=== PATIENT | female | born 1985 | race Caucasian/White ===

== ENCOUNTER 2024-12-08 01:48 | Observation (INO) | payer OTHER, SELFPAY ==
[2024-12-08 02:24] VITALS: BP 111/46; BMI 27.5
[2024-12-08] MEDS: LR 1000 IV ×4 (02:45→20:41)
[2024-12-08] MEDS: PRENATAL PLUS PO (03:46)
[2024-12-08] MEDS: ADALAT 20 MG PO (03:47)
[2024-12-08] MEDS: CELESTONE SOLUSPAN 2 MG IM (03:49)
[2024-12-08 03:57] LABS: Hematocrit 33.9 % (37.0-47.0); Hemoglobin 11.7 g/dL (12.0-16.0); Mean Corp Hgb Conc. 34.5 g/dL (33.0-37.0); Mean Corpuscular Volume 93.6 fL (81.0-99.0); Platelet Count 240 10^3/uL (130-400); Red Cell Dist. Width 13.1 % (11.5-14.5)
[2024-12-08] MEDS: PEPCID 20 MG PO ×2 (08:12→20:07)
[2024-12-08] MEDS: LEXAPRO 10 MG PO (08:12)
[2024-12-08] MEDS: BRETHINE 250 MCG SC ×5 (10:03→20:07)
[2024-12-08] MEDS: PENICILLIN 110 UNITS IV (10:14)
[2024-12-08] MEDS: PENICILLIN IV (10:15)
[2024-12-08] MEDS: PENICILLIN 55 UNITS IV ×3 (14:11→22:02)
[2024-12-08] MEDS: CLARITIN 10 MG PO (20:07)
[2024-12-08] MEDS: FEOSOL 325 MG PO (22:02)
[2024-12-08] MEDS: PRENATAL PLUS 1 TABLET PO (22:02)
[2024-12-09] MEDS: BRETHINE 250 MCG SC ×6 (00:08→20:18)
[2024-12-09] MEDS: PENICILLIN 55 UNITS IV ×4 (02:08→13:59)
[2024-12-09] MEDS: LR 1000 IV (04:13)
[2024-12-09] MEDS: CELESTONE SOLUSPAN 2 MG IM (04:20)
[2024-12-09] MEDS: CLARITIN 10 MG PO ×2 (08:20→20:17)
[2024-12-09] MEDS: LEXAPRO 10 MG PO (08:20)
[2024-12-09] MEDS: PEPCID 20 MG PO ×2 (08:20→20:17)
[2024-12-09] MEDS: PRENATAL PLUS 1 TABLET PO (20:17)
[2024-12-10] MEDS: BRETHINE 250 MCG SC ×2 (00:12→04:07)
[2024-12-10] MEDS: LEXAPRO 10 MG PO (07:56)
[2024-12-10] MEDS: PEPCID 20 MG PO ×2 (07:56→20:07)
[2024-12-10] MEDS: CLARITIN 10 MG PO ×2 (07:56→20:07)
--- NOTE | 2024-12-10 17:42 | CON.NEO ---
Consultation
-
Date/Time Consultation Requested: 12/10/2024 at 1500
Date/Time Consultation Performed: 12/10/2024 at 1700
Requesting Provider: Dr. Hernandes
Performing Provider: Dr. Carvalho
Reason for Consultation: in labor and 32 weeks
Consultation - Neonatology
Maternal Labs
Blood Type: O Positive
Antibody Screen: Negative
RPR: Nonreactive
Rubella: Immune
Hep B S Ag: Negative
Hep C: Negative
HIV: Nonreactive
Group B Strep: Negative
Chlamydia/GC: Negative
Consult
Points discussed at consult: Baby is a boy, parents have yet to settle on a name for him.
- Management at delivery including the possibility of CPAP/intubation/surfactant discussed
- Respiratory: RDS possibility with possibility of worsening for 24-48 hrs, management including CPAP/surfactant/ventilator support may be required
- Nutrition: Hypoglycemia, need for IV fluids, gradual feed advance, Gavage feeding, importance of colostrum feeding, initiation of expression of colostrum within 3-4 hours, availability of donor milk, safety fo donor milk etc. were discussed. Mom
plans to breastfeed and pump, she had some difficulty with supply with her now 3 year old. They previously used donor BM for the older sister and signed consent to use for this baby.
- Procedures: Intubation, CPAP, IV placement, blood tests, umbilical arterial or venous lines, gavage feedings were discussed
- CVS: possibility of PDA not discussed in detail at this time
- Jaundice possibility and need for phototherapy discussed. Parents state the older sister was followed by the [employer] for jaundice but never required phototherapy.
- Family Centered Care: Discussed FCC with emphasis on parental participation during sign off and during management rounds and is encouraged. Availability of nena eyes camera and visitation also discussed.
Mom and Dad were given the opportunity to ask questions throughout and open invitation to call if any questions come as they absorb all the information given so far.
Face to Face Time
Total [id number] Time (in Minutes): 40
[employer]
[2024-12-10] MEDS: PRENATAL PLUS 1 TABLET PO (22:13)
[2024-12-11] MEDS: PEPCID 20 MG PO (08:05)
[2024-12-11] MEDS: CLARITIN 10 MG PO (08:05)
[2024-12-11] MEDS: LEXAPRO 10 MG PO (08:05)
[2024-12-11] MEDS: COLACE 100 MG PO (08:05)
== END 2024-12-11 09:20 | disposition home or self-care (01) ==
LOC: LDRP 01:48
PROVIDERS: ADMITTING PHYSICIAN Obstetrics & Gynecology; CONSULT PHYSICIAN Pediatrics Neonatal-Perinatal Medicine; FAMILY PHYSICIAN Student in an Organized Health Care Education/Training Program
DX: O60.03 Preterm labor without delivery, third trimester (principal); Z3A.33 33 weeks gestation of pregnancy; R10.9 Unspecified abdominal pain; J30.2 Other seasonal allergic rhinitis; O99.343 Other mental disorders complicating pregnancy, third trimester; F41.9 Anxiety disorder, unspecified; O09.523 Supervision of elderly multigravida, third trimester; K21.9 Gastro-esophageal reflux disease without esophagitis; Z88.1 Allergy status to other antibiotic agents; Z91.014 Allergy to mammalian meats; Z91.018 Allergy to other foods; Z85.828 Personal history of other malignant neoplasm of skin; Z80.3 Family history of malignant neoplasm of breast
CPT/HCPCS: 76805; 82731; 85027; 86850; 86900; 86901; 87070; G0378

== ENCOUNTER 2025-01-10 16:58 | Inpatient (IN) | payer OTHER, SELFPAY ==
[2025-01-10 17:03] VITALS: BP 114/78; BMI 28.3
[2025-01-10 17:43] LABS: Hematocrit 36.0 % (37.0-47.0); Hemoglobin 12.3 g/dL (12.0-16.0); Mean Corp Hgb Conc. 34.2 g/dL (33.0-37.0); Mean Corpuscular Volume 91.8 fL (81.0-99.0); Nucleated Red Blood Cells % 0 %; Platelet Count 229 10^3/uL (130-400); Red Cell Dist. Width 13.1 % (11.5-14.5)
[2025-01-10] MEDS: LR 1000 IV ×3 (17:43→19:14)
[2025-01-10] MEDS: FENTANYL/BUPIVACAINE 100 EPIDURAL (17:48)
[2025-01-10] MEDS: SUBLIMAZE 100 MCG EPIDURAL (17:48)
[2025-01-11 04:23] LABS: Hematocrit 30.5 % (37.0-47.0); Hemoglobin 10.3 g/dL (12.0-16.0)
[2025-01-11] MEDS: PRENATAL PLUS 1 TABLET PO ×2 (05:39→20:57)
[2025-01-11] MEDS: MOTRIN 600 MG PO ×3 (08:33→20:57)
[2025-01-11] MEDS: COLACE 100 MG PO ×2 (08:33→20:57)
[2025-01-11 09:59] LABS: Urine Character Clear (Clear)
[2025-01-11 10:09] LABS: Urine Red Blood Cell 40-50 /HPF (0-2); Urine Squamous Cell 0-2 /LPF (Few)
[2025-01-11] MEDS: PEPCID 20 MG PO ×2 (11:08→20:57)
[2025-01-11] MEDS: LEXAPRO 10 MG PO (11:09)
[2025-01-11] MEDS: CLARITIN 10 MG PO (13:25)
[2025-01-12] MEDS: MOTRIN 600 MG PO (06:20)
[2025-01-12] MEDS: COLACE 100 MG PO (09:05)
[2025-01-12] MEDS: CLARITIN 10 MG PO (09:05)
[2025-01-12] MEDS: PEPCID 20 MG PO (09:05)
[2025-01-12] MEDS: LEXAPRO 10 MG PO (09:05)
[2025-01-12 15:47] LABS: Syphilis/T. pallidum Ab Reflex Negative (Negative)
== END 2025-01-12 11:52 | disposition home or self-care (01) | DRG 807 ==
LOC: LDRP 16:58
PROVIDERS: ADMITTING PHYSICIAN Obstetrics & Gynecology
PROC: 10E0XZZ Delivery of Products of Conception, External Approach (ICD-10-PCS; 2025-01-10)
PROC: 6A550ZT Pheresis of Cord Blood Stem Cells, Single (ICD-10-PCS; 2025-01-10)
PROC: 10907ZC Drainage of Amniotic Fluid, Therapeutic from Products of Conception, Via Natural or Artificial Opening (ICD-10-PCS; 2025-01-10)
PROC: 0KQM0ZZ Repair Perineum Muscle, Open Approach (ICD-10-PCS; 2025-01-10)
DX: O99.344 Other mental disorders complicating childbirth (principal); Z37.0 Single live birth; Z3A.37 37 weeks gestation of pregnancy; O70.1 Second degree perineal laceration during delivery; F41.9 Anxiety disorder, unspecified
CPT/HCPCS: 81003; 81015; 85014; 85018; 85025; 86780; 86850; 86900; 86901; 87086; 88307